=== PATIENT | female | born 1925 | race Caucasian/White ===

== ENCOUNTER → 2016-05-16 | Outpatient (CLI) | payer MEDICARE | LOC: YCHH 09:22 | PROVIDERS: ATTEND Family Medicine | DX: J44.9 Chronic obstructive pulmonary disease, unspecified (principal); D64.9 Anemia, unspecified; I50.9 Heart failure, unspecified; D50.9 Iron deficiency anemia, unspecified; I10 Essential (primary) hypertension ==

== ENCOUNTER → 2016-06-13 | Outpatient (CLI) | payer MEDICARE | END | disposition home or self-care (01) | LOC: YCHH 18:29 | PROVIDERS: ATTEND Family Medicine | DX: N39.0 Urinary tract infection, site not specified (principal) ==

== ENCOUNTER → 2016-09-12 | Outpatient (CLI) | payer MEDICARE | END | disposition home or self-care (01) | LOC: GMAB 14:09 | PROVIDERS: ATTEND Family Medicine | DX: R04.0 Epistaxis (principal) ==

== ENCOUNTER → 2016-11-14 | Outpatient (CLI) | payer MEDICARE | END | disposition home or self-care (01) | LOC: YCHH 09:44 | PROVIDERS: ATTEND Family Medicine | DX: D50.9 Iron deficiency anemia, unspecified (principal); I10 Essential (primary) hypertension; E78.5 Hyperlipidemia, unspecified ==

== ENCOUNTER → 2016-12-28 | Outpatient (CLI) | payer MEDICARE | END | disposition home or self-care (01) | LOC: YCHH 08:47 | PROVIDERS: ATTEND Family Medicine | DX: R30.0 Dysuria (principal) ==

== ENCOUNTER → 2017-01-16 | Outpatient (CLI) | payer MEDICARE | END | disposition home or self-care (01) | LOC: YCHH 10:08 | PROVIDERS: ATTEND Family Medicine | DX: N39.0 Urinary tract infection, site not specified (principal) ==